=== PATIENT | male | born 1970 | race Caucasian/White ===

== ENCOUNTER 2023-01-30 10:05 | Outpatient (AMB) | payer OTHER, SELFPAY ==
--- NOTE | 2023-01-30 10:06 | A.OFFPC_ITS ---
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 Required: No Allergies codeine Allergy (Intermediate, Verified 01/30/23 10:29) Hives Medication List - Last Reconciled 01/30/23 by ROMAN Shepard albuterol sulfate 90 mcg/actuation inhalation dulaglutide (Trulicity) mg subcut escitalopram oxalate 20 mg PO DAILY gabapentin 300 mg PO BID glipizide ER 5 mg PO DAILY Tobacco use date assessed: 01/30/23 Dental Screening Dental Screen Date: 01/30/23 Did you have a dental visit in the last 12 months?: No Did you have a dental problem in the last 6 months where you did not have access to dental care?: No HPI HPI Comments History of Present Illness Details 52-year-old male new patient presents to [facility] to establish care. Past medical history significant for type 2 diabetes mellitus, peripheral neuropathy, depression and multiple sclerosis. Patient reports he currently resides at the [facility], past hx alcholol abuse. Patient reports a 6 month relapse, last year but is currently sober. Patient states occasionally will smoke marijuana this is infrequent. Patient reports ambulates with a cane ever since [facility] to [facility]acte[facility] and he was treated with IV antibiotics. Patient reports during that admission he was told he had MS. Patient reports not currently established with neurologist, referral entered. Patient needs refills on all his medications, refill sent. Patient denies the need for diabetes supplies such as strips and lancets. Patient screening positive for depression, agreeable to counseling referral. Previous patient of Dr. Harmon, patient past complete record release form. [facility] Medical History (Updated 01/30/23 @ 10:37 by ROMAN Shepard) L4-L5 disc bulge Family History (Updated 01/30/23 @ 10:34 by ROMAN Shepard) Mother CHF (congestive heart failure) Type 2 diabetes mellitus Father Brain cancer Sister Multiple sclerosis Brother Endocarditis Brother Renal failure Social History (Updated 01/30/23 @ 10:35 by DARLENE Shepard Housing: Other Housing Other:: [facility] Alcohol intake: never Patient Tobacco Use Status: Former Tobacco user Quit Date: 2017 Tobacco use type: Cigarette Substance Use Type: Marijuana service: No Current occupational status: disabled Cognitive needs: Yes Hearing needs: No Vision needs: No Questionnaire PHQ-9 Over the last 2 weeks, how often have you been bothered by any of the following problems? 1. Little interest or pleasure in doing things: several days 2. Feeling down, depressed, or hopeless: several days 3. Trouble falling or staying asleep, or sleeping too much: several days 4. Feeling tired or having little energy: several days 5. Poor appetite or overeating: several days 6. Feeling bad about yourself - or that you are a failure or have let yourself or your family down: several days 7. Trouble concentrating on things, such as reading the newspaper or watching television: several days 8. Moving or speaking so slowly that other people could have noticed. Or the opposite - being so fidgety or restless that you have been moving around a lot more than usual: several days 9. Thoughts that you would be better off or of hurting yourself in some way: not at all Total score: 8 Depression Screening Interpretation: Positive Depression Screening Done: Yes 57888 - PHQ-9 Billing: Yes Source: Developed by Drs. Magnus Rosado, Guerline Aquino, Sharath Burch and colleagues, with an educational lynn from [employer]. Thrive Questionnaire Date Thrive assessed: 01/30/23 I am a: Patient What is your living situation today?: I have a steady place to live Within the past 12 months, did the food you bought not last and you didn't have the money to get more?: Never true Within the past 12 months, did you worry whether your food would run out before you got money to buy more?: Never true Do you have trouble paying for medicines?: No Do you have trouble getting transportation to medical appointments?: No Do you have trouble paying your heating and electricity bill?: No Do you have trouble taking care of your child, family member or friend?: No Do you have trouble with day-to-day activities such as bathing, preparing meals, shopping, managing finances, etc.?: No Are you currently unemployed and looking for a job?: No Are you interested in more education?: No AUDIT C Alcohol Use Questionnaire (AUDIT-C) 1. How often do you have a drink containing alcohol?: Never 2. How many drinks containing alcohol do you have on a typical day when you are drinking?: 1 or 2 3. How often do you have six or more drinks on one occasion?: Never Total Score: 0 ORESTES-7 AMB Questionnaire ORESTES-7 Date ORESTES - 7 assessed: 01/30/23 Feeling nervous, anxious, or on edge: 1 = Several days Not being able to stop or control worryin = Several days Worrying too much about different things: 1 = Several days Trouble relaxin = Several days Being so restless that it is hard to sit still: 1 = Several days Becoming easily annoyed or irritable: 1 = Several days Feeling afraid as if something awful might happen: 0 = Not at all Total ORESTES-7 score (0-4 normal; 5-9 mild; 10-14 moderate; 15-21 severe): 6 Source: Developed by Drs. Magnus Rosado, Guerline Aquino, Sharath Burch and colleagues, with an educational lynn from [employer]. Review of Systems Const Denies chills, Denies fatigue, Denies fever(s) and Denies poor appetite Eyes Denies no additional complaints ENT Reports Normal hearing present Card Denies chest pain, Denies syncope, Denies rapid heart rate and Denies dyspnea Resp Denies cough and Denies dyspnea GI Denies change in stool character, Denies constipation, Denies diarrhea, Denies nausea and Denies vomiting Denies dysuria, Denies urinary frequency and Denies urinary urgency Neuro Reports Normal hearing present, Denies confusion and Denies syncope Psych Denies confusion Endo Denies fatigue Physical exam (Primary Care) Vital Signs: Last Vital Signs Pulse 79 01/30/23 10:11 BP 118/88 01/30/23 10:11 Pulse Ox 99 01/30/23 10:11 Oxygen Delivery Method Room Air 01/30/23 10:11 BMI result Body Mass Index 30.5 Tobacco/Smoking Status: Tobacco use Status Tobacco use date assessed 01/30/23 01/30/23 10:22 Patient Tobacco Use Status Former Tobacco user 01/30/23 10:35 Tobacco use type Cigarette 01/30/23 10:35 PHQ-9: PHQ-9 Score PHQ-9: Total score 8 01/30/23 10:35 Depression Screening Interpretation: Positive Thrive Assessment: Date of Thrive Assessment Date Thrive assessed 01/30/23 01/30/23 10:22 Const General: No confusion Orientation/consciousness: No confusion HENMT Head: Yes normocephalic and Yes atraumatic Eyes Conjunctivae: conjunctivae normal Chest Chest palpation & inspection: normal inspection of the chest Resp Effort & Inspection: normal respiratory effort Auscultation: clear to auscultation bilaterally, no crackles, no rhonchi and no wheezes Cardio Rate: regular rate Rhythm: regular rhythm Heart sounds: S1 normal heart sound present and S2 normal heart sound present GI Inspection: Yes normal to inspection Neuro General: No confusion Cranial nerves: Yes Normal hearing present Extrem General: No edema Results AMB Hemoglobin A1c AMB Hemoglobin A1c 8.2 % Last Edit by TIN Victoria on 01/30/23 10:24 Results Reviewed Results Reviewed: Laboratory Last Values Hgb A1c (Clinic) 8.2 % (4.0-6.0) H 01/30/23 10:23 Assessment and Plan Assessment & Plan (1) Depression: Code(s): F32.A - Depression, unspecified Plan: Referral entered to counseling. (2) Multiple sclerosis: Code(s): G35 - Multiple sclerosis Plan: Referral entered to Neurology. (3) Type 2 diabetes mellitus: Code(s): E11.9 - Type 2 diabetes mellitus without complications Plan: Patient requesting refill on Trulicity and glipizide. Refill sent. Hemoglobin A1c and fasting glucose ordered. Patient educated to decrease the amount of carbohydrate intake such as pasta, bread, rice and potatoes are all sugar in addition to the sweet stuff. Remember that fruits are good but they also have sugar. (4) Peripheral neuropathy: Code(s): G62.9 - Polyneuropathy, unspecified Plan: Gabapentin 300 mg b.i.d. sent to patient's pharmacy. Plan Follow-up in 3 months for physical exam. Orders: Orders Complete Blood Count Auto Diff Today Z13.0 - Encounter for screening for diseases of the blood and blood-forming organs and certain disorders involving the immune mechanism Comprehensive [place]. Panel Fast Today E11.9 - Type 2 diabetes mellitus without complications Lipid Panel Today Z13.220 - Encounter for screening for lipoid disorders TSH reflex Free T4 Today Z13.29 - Encounter for screening for other suspected endocrine disorder Hemoglobin A1c Today E11.9 - Type 2 diabetes mellitus without complications AMB Hemoglobin A1c Today Z13.9 - Encounter for screening, unspecified Referrals Neurology Referral G35 - Multiple sclerosis Counseling Referral F32.A - Depression, unspecified Medications: New dulaglutide (Trulicity) 1.5 mg (0.5 mL) subcut QWEEK 2 mL 3RF E11.9 - Type 2 diabetes mellitus without complications escitalopram oxalate 20 mg PO DAILY 30 tabs 3RF glipizide ER 5 mg PO DAILY 30 tabs 3RF gabapentin 300 mg PO BID 60 caps 3RF Coding Level of Care Code New Pt Level 4 (57557) Diagnoses Depression F32.A Multiple sclerosis G35 Type 2 diabetes mellitus E11.9 Peripheral neuropathy G62.9
[2023-01-30 10:11] VITALS: BP 118/88; PULSE 79; O2SAT 99; BMI 30.5
== END 2023-01-30 10:50 | disposition home or self-care (01) ==
PROVIDERS: PCP Nurse Practitioner Family; Visit Provider Nurse Practitioner Family
DX: F32.A Depression, unspecified (principal); G35 Multiple sclerosis; E11.42 Type 2 diabetes mellitus with diabetic polyneuropathy; G62.9 Polyneuropathy, unspecified
CPT/HCPCS: 83036; 99204

== ENCOUNTER 2023-04-25 10:30 | Outpatient (REF) | payer OTHER, SELFPAY ==
[2023-04-25 10:39] LABS: MANUAL DIFF FLAG NO
[2023-04-25 11:07] LABS: Basophils Percent Auto 0.6 % (0-2); Eosinophils Absolute Auto 0.2 X10*3/uL (0.0-0.4); Eosinophils Percent Auto 3.8 % (0-4); Hematocrit 44.6 % (42.0-52.0); Hemoglobin 15.8 g/dl (14.0-18.0); Imm Gran Abs Auto 0.02 X10*3/uL (0.00-0.03); Imm Gran Pct Auto 0.3 % (0.0-0.4); Lymphocytes Absolute Auto 2.3 X10*3/uL (1.2-4.9); Lymphocytes Percent Auto 36.5 % (20-40); Mean Corpuscular HGB Conc 35.4 g/dl (31.0-36.0); Mean Corpuscular Hemoglobin 33.5 pg (27.0-33.0); Mean Corpuscular Volume 94.7 fL (80.0-98.0); Monocytes Absolute Auto 0.5 X10*3/uL (0.1-1.2); Neutrophils Absolute Auto 3.2 x10*3/uL (2.0-8.3); Neutrophils Percent Auto 50.8 % (45-73); Platelet Count 222 X10*3/uL (160-400); Red Blood Count 4.71 X10*6/uL (4.60-5.80); Red Cell Distribution Width 12.3 % (11.0-16.0); White Blood Count 6.4 X10*3/uL (4.8-10.8)
[2023-04-25 12:33] LABS: Alanine Aminotransferase 25 U/L (0-40); Alkaline Phosphatase 94 U/L (39-117); Anion Gap 9 (12-20); Aspartate Amino Transferase 13 U/L (5-37); Bilirubin Total 0.5 mg/dL (0.0-1.0); Blood Urea Nitrogen 16 mg/dL (9-16); Calcium 9.2 mg/dL (8.4-10.2); Carbon Dioxide 24 mmol/L (22-29); Chloride 110 mmol/L (96-108); Cholesterol 161 mg/dL (<200); Estimated Glomerular Filt Rate > 60; Glucose Fasting 240 mg/dL (60-99); HDL Cholesterol 35 mg/dL (>40); LDL Cholesterol Calculated 91 mg/dL (<100); Potassium 4.3 mmol/L (3.3-5.1); Sodium 139 mmol/L (135-145); TSH reflex Free T4 1.78 uIU/mL (0.32-4.0); Total Protein 6.6 g/dL (6.5-8.0); Triglycerides 176 mg/dL (<150)
[2023-04-25 16:20] LABS: Estimated Average Glucose 163 mg/dL; Hemoglobin A1c % 7.3 % (<6.0)
== END 2023-04-25 10:31 | disposition home or self-care (01) ==
LOC: HO.LAB 10:30
PROVIDERS: Visit Provider Nurse Practitioner Family
DX: E11.9 Type 2 diabetes mellitus without complications (principal); Z13.220 Encounter for screening for lipoid disorders; Z13.29 Encounter for screening for other suspected endocrine disorder; Z13.0 Encounter for screening for diseases of the blood and blood-forming organs and certain disorders involving the immune mechanism
CPT/HCPCS: 36415; 80053; 80061; 83036; 84443; 85025

== ENCOUNTER 2023-06-09 16:24 | Outpatient (AMB) | payer OTHER, SELFPAY ==
--- NOTE | 2023-06-09 16:46 | MHC.PC.OV ---
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: No Allergies codeine Allergy (Intermediate, Verified 06/09/23 16:51) Hives Medication List - Last Reconciled 06/09/23 by Remigio Hernandez MD albuterol sulfate 90 mcg/actuation inhalation escitalopram oxalate 20 mg PO DAILY gabapentin 300 mg PO BID glipizide ER 5 mg PO DAILY multivit with min-folic acid 12 mcg (Centrum Adults) tabs PO Tobacco use date assessed: 06/09/23 Dental Screening Dental Screen Date: 06/09/23 Did you have a dental visit in the last 12 months?: No Did you have a dental problem in the last 6 months where you did not have access to dental care?: No HPI Transfer care HPI Details 52-year-old obese male with a history of diabetes mellitus multiple sclerosis depression and peripheral no polyneuropathy last seen in the office in January 2023. Patient is here for follow-up. Review of the notes from [facility] has a history of bipolar disorder as well as polysubstance abuse history of hepatitis-C noted polyps in the gallbladder question david of pancreatic lesion patient is here for follow-up. [facility] Medical History (Updated 06/09/23 @ 17:33 by Remigio Hernandez MD) Endocarditis Depression Type 2 diabetes mellitus L4-L5 disc bulge Surgical History (Updated 06/09/23 @ 17:27 by Reimgio Hernandez MD) Club foot of both lower extremities Family History (Updated 06/09/23 @ 17:28 by Remigio Hernandez MD) Mother CHF (congestive heart failure) Type 2 diabetes mellitus Father Brain cancer Sister Multiple sclerosis Brother Endocarditis Brother Renal failure Maternal Grandmother Breast cancer Maternal Grandfather Lung cancer Social History (Updated 06/09/23 @ 17:29 by Remigio Hernandez MD) Housing: Other Housing Other:: [facility] Alcohol intake: current Comment: 2x a week till pass out Patient Tobacco Use Status: Former Tobacco user Quit Date: 2017 Tobacco use type: Cigarette Years Smoked: marijuana Substance Use Type: Marijuana service: No Current occupational status: disabled Cognitive needs: Yes Hearing needs: No Vision needs: No Questionnaire PHQ-9 Over the last 2 weeks, how often have you been bothered by any of the following problems? 1. Little interest or pleasure in doing things: not at all 2. Feeling down, depressed, or hopeless: not at all 3. Trouble falling or staying asleep, or sleeping too much: not at all 4. Feeling tired or having little energy: not at all 5. Poor appetite or overeating: not at all 6. Feeling bad about yourself - or that you are a failure or have let yourself or your family down: not at all 7. Trouble concentrating on things, such as reading the newspaper or watching television: not at all 8. Moving or speaking so slowly that other people could have noticed. Or the opposite - being so fidgety or restless that you have been moving around a lot more than usual: not at all 9. Thoughts that you would be better off or of hurting yourself in some way: not at all Total score: 0 Depression Screening Interpretation: Negative Depression Screening Done: Yes 59766 - PHQ-9 Billing: Yes Source: Developed by Drs. Magnus Rosado, Guerline Aquino, Sharath Burch and colleagues, with an educational lynn from [employer]. Thrive Questionnaire Date Thrive assessed: 06/09/23 I am a: Patient What is your living situation today?: I have a steady place to live Within the past 12 months, did the food you bought not last and you didn't have the money to get more?: Never true Within the past 12 months, did you worry whether your food would run out before you got money to buy more?: Never true Do you have trouble paying for medicines?: No Do you have trouble getting transportation to medical appointments?: No Do you have trouble paying your heating and electricity bill?: No Do you have trouble taking care of your child, family member or friend?: No Do you have trouble with day-to-day activities such as bathing, preparing meals, shopping, managing finances, etc.?: No Are you currently unemployed and looking for a job?: No Are you interested in more education?: No Please select the resources that you would like help with: None Currently or been in a relationship where the following occur: no concerns reported THRIVE Score: 0 AUDIT C Alcohol Use Questionnaire (AUDIT-C) 1. How often do you have a drink containing alcohol?: Never 2. How many drinks containing alcohol do you have on a typical day when you are drinking?: 1 or 2 3. How often do you have six or more drinks on one occasion?: Never Total Score: 0 ORESTES-7 AMB Questionnaire ORESTES-7 Date ORESTES - 7 assessed: 06/09/23 Feeling nervous, anxious, or on edge: 1 = Several days Not being able to stop or control worryin = Several days Worrying too much about different things: 1 = Several days Trouble relaxin = Several days Being so restless that it is hard to sit still: 1 = Several days Becoming easily annoyed or irritable: 1 = Several days Feeling afraid as if something awful might happen: 0 = Not at all Total ORESTES-7 score (0-4 normal; 5-9 mild; 10-14 moderate; 15-21 severe): 6 Source: Developed by Drs. Magnus Rosado, Guerline Aquino, Sharath Burch and colleagues, with an educational lynn from [employer]. ORESTES-7 Assessment Billing ORESTES-7 Assessment Tool: ORESTES-7 Assessment 46966 Physical exam (Primary Care) Vital Signs: Last Vital Signs Pulse 66 06/09/23 16:51 BP 106/74 06/09/23 16:51 Pulse Ox 97 06/09/23 16:51 Oxygen Delivery Method Room Air 06/09/23 16:51 BMI result Body Mass Index 30.8 Tobacco/Smoking Status: Tobacco use Status Tobacco use date assessed 06/09/23 06/09/23 16:52 Patient Tobacco Use Status Former Tobacco user 06/09/23 17:29 Tobacco use type Cigarette 06/09/23 17:29 PHQ-9: PHQ-9 Score PHQ-9: Total score 0 06/09/23 17:03 Depression Screening Interpretation: Negative Thrive Assessment: Date of Thrive Assessment Date Thrive assessed 06/09/23 06/09/23 16:52 Currently or been in a relationship where the following occur: no concerns reported Const General: alert; No acute distress Eyes Conjunctivae: conjunctivae normal Resp Auscultation: clear to auscultation bilaterally Cardio Rate: regular rate Rhythm: regular rhythm GI Inspection: Yes normal to inspection Extrem General: Yes normal to inspection and No edema Assessment and Plan Assessment & Plan (1) Type 2 diabetes mellitus with hyperglycemia: Code(s): E11.65 - Type 2 diabetes mellitus with hyperglycemia Plan: Decrease the amount of carbohydrate intake, pasta, bread, rice and potatoes are all sugar and that is aside from all the sweet stuff, remember that fruits are good but they are Sweet also. Hemoglobin A1c goal of less than 6.5. Presently on glipizide and aware of side effects of hypoglycemia and so far patient is aware. Patient has been prescribed Trulicity but could not get the prescription due to lack of availability. Will try Victoza injection once a day. (2) Major depression: Code(s): F32.9 - Major depressive disorder, single episode, unspecified Plan: Referral to counseling. Continue with Lexapro. (3) Multiple sclerosis: Code(s): G35 - Multiple sclerosis Plan: Patient will be referred to Neurology (4) Peripheral neuropathy: Code(s): G62.9 - Polyneuropathy, unspecified Plan: Continue with present medication (5) Colon cancer screening: Code(s): Z12.11 - Encounter for screening for malignant neoplasm of colon Plan: Referral to Gastroenterology done (6) Pancreatic mass: Code(s): K86.89 - Other specified diseases of pancreas Plan: Referral to Gastroenterology to follow this up (7) L4-L5 disc bulge: Code(s): M51.36 - Other intervertebral disc degeneration, lumbar region Plan: X-ray requested and advised physical therapy. Orders: Orders XR lumbar spine 2-3V Today M51.36 - Other intervertebral disc degeneration, lumbar region PT Evaluation and Treatment Today M51.36 - Other intervertebral disc degeneration, lumbar region Referrals Gastroenterology Referral K86.89 - Other specified diseases of pancreas, Z12.11 - Encounter for screening for malignant neoplasm of colon Psychiatry Referral F32.9 - Major depressive disorder, single episode, unspecified Ophthalmology Referral E11.65 - Type 2 diabetes mellitus with hyperglycemia Neurology Referral G35 - Multiple sclerosis Medications: New liraglutide (Victoza 3-Christian) inject 0.6mg subcutaneously once daily x 7 days; then 1.2mg daily, not to exceed 1.8mg/day subcut 9 mL 0RF E11.65 - Type 2 diabetes mellitus with hyperglycemia Coding Level of Care Code Est Pt Level 4 (13011) Diagnoses Type 2 diabetes mellitus with hyperglycemia E11.65 Major depression F32.9 Multiple sclerosis G35 Peripheral neuropathy G62.9 Colon cancer screening Z12.11 Pancreatic mass K86.89 L4-L5 disc bulge M51.36 Additional Codes ORESTES-7 Assessment Billing - ORESTES-7 Assessment Tool: ORESTES-7 Assessment [id number] ([id number])
[2023-06-09 16:51] VITALS: BP 106/74; PULSE 66; O2SAT 97; BMI 30.8
== END 2023-06-09 17:41 | disposition home or self-care (01) ==
PROVIDERS: PCP Nurse Practitioner Family; Visit Provider Internal Medicine
DX: E11.65 Type 2 diabetes mellitus with hyperglycemia (principal); G35 Multiple sclerosis; F32.9 Major depressive disorder, single episode, unspecified; G62.9 Polyneuropathy, unspecified; Z12.11 Encounter for screening for malignant neoplasm of colon; K86.89 Other specified diseases of pancreas; M51.36 Other intervertebral disc degeneration, lumbar region
CPT/HCPCS: 99214

== ENCOUNTER 2023-09-22 08:18 | Outpatient (AMB) | payer MEDICARE, SELFPAY ==
[2023-09-22 08:35] VITALS: BP 90/68; PULSE 78; O2SAT 97; BMI 30.8
--- NOTE | 2023-09-22 08:35 | MHC.PC.OV ---
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 Required: No Allergies codeine Allergy (Intermediate, Verified 06/09/23 16:51) Hives Medication List - Last Reconciled 09/22/23 by Keiry Ramirez PA-C albuterol sulfate 90 mcg/actuation inhalation blood sugar diagnostic (FreeStyle Lite Strips) As directed dulaglutide (Trulicity) mg subcut escitalopram oxalate 20 mg PO DAILY gabapentin 400 mg PO BID glipizide ER 5 mg PO DAILY insulin glargine (Lantus Solostar U-100 Insulin) 10 units subcut QPM liraglutide (Victoza 3-Christian) inject 0.6mg subcutaneously once daily x 7 days; then 1.2mg daily, not to exceed 1.8mg/day subcut multivit with min-folic acid 12 mcg (Centrum Adults) tabs PO Tobacco use date assessed: 06/09/23 Dental Screening Dental Screen Date: 06/09/23 HPI Uncontrolled Blood Sugars HPI Details 52-year-old male with past medical history of peripheral neuropathy, multiple sclerosis, depression, and diabetes mellitus last seen by Dr. Hernandez 05/2023 coming in for acute problem.? In review of the notes, patient was seen for diabetic eye exam 06/19/2023 and not found to have retinopathy.? He has been seeing physical therapy for back pain. Patient states he has been without Trulicity for about 3 months and has been unable to get it from the pharmacy. His blood sugars during this time were typically 300-400 range. He was able to get Trulicity and took his 1st dose this week and this morning his blood sugar was 140. He states he has dizziness and lightheadedness in the 140 range typically has to have a snack. He uses his Lantus if he continues to have elevated blood sugars and holds the Lantus if the sugars are 170 or below. He has been having pain and tingling in his hands and feet and blurred vision. Was seen by optometry and given glasses but can not afford the prescription. [facility] Medical History (Updated 06/09/23 @ 17:33 by Remigio Hernandez MD) Endocarditis Depression Type 2 diabetes mellitus L4-L5 disc bulge Surgical History (Updated 06/09/23 @ 17:27 by Remigio Hernandez MD) Club foot of both lower extremities Family History (Updated 06/09/23 @ 17:28 by Remigio Hernandez MD) Mother CHF (congestive heart failure) Type 2 diabetes mellitus Father Brain cancer Sister Multiple sclerosis Brother Endocarditis Brother Renal failure Maternal Grandmother Breast cancer Maternal Grandfather Lung cancer Social History (Updated 06/09/23 @ 17:29 by Remigio Hernandez MD) Housing: Other Housing Other:: [employer] Alcohol intake: current Comment: 2x a week till pass out Patient Tobacco Use Status: Former Tobacco user Tobacco use type: Cigarette Years Smoked: marijuana Substance Use Type: Marijuana service: No Current occupational status: disabled Cognitive needs: Yes Hearing needs: No Vision needs: No Questionnaire Thrive Questionnaire Date Thrive assessed: 06/09/23 AUDIT C Alcohol Use Questionnaire (AUDIT-C) 1. How often do you have a drink containing alcohol?: Never 2. How many drinks containing alcohol do you have on a typical day when you are drinking?: 1 or 2 3. How often do you have six or more drinks on one occasion?: Never Total Score: 0 ORESTES-7 AMB Questionnaire ORESTES-7 Date ORESTES - 7 assessed: 06/09/23 Source: Developed by Drs. Magnus Rosado, Guerline Aquino, Sharath Burch and colleagues, with an educational lynn from [employer]. Review of Systems Const Denies body aches, Denies chills, Denies fever(s), Denies headache(s) and Denies poor appetite Eyes Reports no additional complaints ENT Denies dysphagia, Denies dizziness, Denies headache(s) and Denies odynophagia Card Denies chest pain, Denies syncope, Denies edema, Denies irregular heart rhythm, Reports lightheadedness (With low blood sugars) and Denies dyspnea Resp Denies cough and Denies dyspnea GI Denies abdominal pain, Denies constipation, Denies dysphagia, Denies diarrhea, Denies nausea, Denies odynophagia and Denies vomiting Reports no additional complaints Musc Reports no additional complaints, Denies abnormal gait and Reports numbness Skin/Breast Reports system reviewed and no additional complaints, except as documented Neuro Denies abnormal gait, Reports burning sensations (Feet bilaterally), Denies dizziness, Denies syncope, Denies headache(s) and Reports numbness Psych Reports no additional complaints Physical exam (Primary Care) Vital Signs: Last Vital Signs Pulse 78 09/22/23 08:35 BP 90/68 09/22/23 08:35 Pulse Ox 97 09/22/23 08:35 Oxygen Delivery Method Room Air 09/22/23 08:35 BMI result Body Mass Index 30.8 Tobacco/Smoking Status: Tobacco use Status Tobacco use date assessed 06/09/23 09/22/23 08:36 Patient Tobacco Use Status Former Tobacco user 09/22/23 08:36 Tobacco use type Cigarette 09/22/23 08:36 Thrive Assessment: Date of Thrive Assessment Date Thrive assessed 06/09/23 09/22/23 08:36 Const General: cooperative, healthy appearing, comfortable and no acute distress Orientation/consciousness: patient oriented x3 HENMT Head: Yes normocephalic Ears: hearing grossly normal bilaterally General nose exam: Normal external nose present Eyes General: appearance normal, both eyes and all related structures Conjunctivae: conjunctivae normal Neck Neck: Yes full ROM and Yes no lymphadenopathy Resp Effort & Inspection: normal respiratory effort Auscultation: clear to auscultation bilaterally, no crackles, no rales, no rhonchi and no wheezes Cardio Rate: regular rate Rhythm: regular rhythm Skin General skin exam: no rashes or lesions noted Neuro General: patient oriented x3 Gait exam (Neuro): Normal gait present Extrem General: Yes normal to inspection, Yes full ROM and No edema Psych Affect: normal affect Attitude: cooperative Insight: Good insight present (Psych) Judgement: Good judgement present (Psych) Results AMB Hemoglobin A1c AMB Hemoglobin A1c 8.5 % Last Edit by TIN Victoria on 09/22/23 08:58 Results Reviewed Results Reviewed: Laboratory Last Values Hgb A1c (Clinic) 8.5 % (4.0-6.0) H 09/22/23 08:36 Assessment and Plan Assessment & Plan (1) Type 2 diabetes mellitus with hyperglycemia: Code(s): E11.65 - Type 2 diabetes mellitus with hyperglycemia Plan: Patient's A1c today in the office was 8.5% which was increased from 03/2023 at 7.3%. Patient was able to obtain Trulicity through his pharmacy. He did not bring in his meter today or his recent blood sugar readings. Patient will manually keep track of blood pressure readings and bring in his meter at next visit for counseling. Advised patient if he continues to be lightheaded with low blood sugars or has values below 100 to reach out to the office and/or if he is unable to obtain Trulicity. We will follow up in 3 months for repeat A1c. Continue to follow up with electroneurodiagnostic technologist. Decrease the amount of carbohydrates such as pasta, bread, rice, and potatoes and limit the amount of sweets. Although fruits are generally healthy they should be eaten in moderation as they are still high in sugar. Hemoglobin A1c goal of less than 7%. (2) Peripheral neuropathy: Code(s): G62.9 - Polyneuropathy, unspecified Plan: Patient currently on gabapentin 400 mg b.i.d.. States the neuropathy has worsened since being out of Trulicity. We will continue to monitor. Plan This note was constructed using voice recognition software. While every effort has been made to ensure accuracy and web operations lead, still areas may have been included sometimes these areas may affect the content or meeting of the given symptoms. Total time spent caring for the patient today was 30 minutes. This includes time spent before the visit reviewing the chart, time spent during the visit, and time spent after the visit and documentation. Orders: Orders AMB Hemoglobin A1c Today E11.65 - Type 2 diabetes mellitus with hyperglycemia Medications: New blood sugar diagnostic (FreeStyle Lite Strips) As directed 50 ea 3RF Coding Level of Care Code Est Pt Level 4 (58292) Diagnoses Type 2 diabetes mellitus with hyperglycemia E11.65 Peripheral neuropathy G62.9
== END 2023-09-22 09:32 | disposition home or self-care (01) ==
PROVIDERS: PCP Internal Medicine
DX: E11.65 Type 2 diabetes mellitus with hyperglycemia (principal); G62.9 Polyneuropathy, unspecified
CPT/HCPCS: 83036; 99214

== ENCOUNTER 2023-12-18 13:52 | Outpatient (AMB) | payer MEDICARE, SELFPAY ==
--- NOTE | 2023-12-18 14:15 | A.OFFVIS_ITS ---
Vital Signs 12/18/23 14:20 Height 5 ft 6 in Weight 185 lb 4 oz BMI 29.9 BP 102/60 Blood Pressure Location Rt brachial Position Sitting Pulse 70 Pulse Source Pulse Oximeter Pulse Oximetry (%) 96 Oxygen Delivery Method Room Air Intake Visit Reasons: (LVM-LETTER 06/14)INP-Multiple sclerosis Intake Note: Patient presents in office for a new patient evaluation for multiple sclerosis. Patient states that his feet hurt due to the neuropathy making it difficult to walk. C/o of muscle pain and feeling fatigue. Wet Finisher Wool Required: No Accompanied by: Self / Same As Patient Allergies codeine Allergy (Intermediate, Verified 12/18/23 14:20) Hives Medication List - Last Reconciled 12/19/23 by Anastasia Tello MD albuterol sulfate 90 mcg/actuation inhalation blood sugar diagnostic (FreeStyle Lite Strips) As directed three times per day dulaglutide (Trulicity) 1.5 mg (0.5 mL) subcut QWEEK escitalopram oxalate 20 mg PO DAILY gabapentin 400 mg PO BID glipizide ER 5 mg PO DAILY insulin glargine (Lantus Solostar U-100 Insulin) 10 units subcut QPM PRN multivit with min-folic acid 12 mcg (Centrum Adults) tabs PO HPI Comments Details: 53y/o male comes for neurological evaluation. In 2019 he had MRSA and he had sudden rodney leg weakness. He was hospitalized in [facility] and was told he has MS ?.when he was discharged he needed a walker and has improved since then . He uses a cane as needed now. He reports on and off leg cramps , burning in calves , stiffness, hip pain causing gait issues. He also has back pain shooting down his legs . He describes it as burning pain. He has h/o diabetes and was found to have neuropathy .He is concerned about MS as his sister and Aunt has MS. He has urinary urgency and incontinence. He reports dizziness . No double vision or loss of vision He used to be an avid hiker before all this. [facility] Medical History (Updated 12/19/23 @ 08:14 by Anastasia Tello MD) Muscle spasms of both lower extremities Weakness Opiate abuse, episodic Cocaine abuse Heroin abuse Endocarditis Depression Type 2 diabetes mellitus L4-L5 disc bulge Surgical History Club foot of both lower extremities Family History Mother CHF (congestive heart failure) Type 2 diabetes mellitus Father Brain cancer Sister Multiple sclerosis Brother Endocarditis Brother Renal failure Maternal Grandmother Breast cancer Maternal Grandfather Lung cancer Social History Housing: Other Housing Other:: [employer] Alcohol intake: current Comment: 2x a week till pass out Patient Tobacco Use Status: Former Tobacco user Tobacco use type: Cigarette Years Smoked: marijuana Substance Use Type: Marijuana service: No Current occupational status: disabled Cognitive needs: Yes Hearing needs: No Vision needs: No Physical Exam Vital Signs: Last Vital Signs Pulse 70 12/18/23 14:20 BP 102/60 12/18/23 14:20 Pulse Ox 96 12/18/23 14:20 Oxygen Delivery Method Room Air 12/18/23 14:20 BMI result Body Mass Index 29.9 Const General: cooperative, healthy appearing, comfortable and no acute distress Nutritional Appearance: average body habitus Orientation/consciousness: patient oriented x3 Eyes Pupils: Equal, round and reactive pupils present Neuro General: patient oriented x3, gait normal, tone normal, moves all extremities and no focal motor deficits Cranial nerves: Yes Facial sensation intact/muscles of mastication intact, Yes Equal, round and reactive pupils present, Yes Bilaterally intact EOM present, Yes Nystagmus not present, Yes Normal facial strength present, Yes Midline tongue present and Yes Symmetric palate elevation present Cognition (Neuro): normal cognition Gait exam (Neuro): Normal gait present Motor exam (neuro): 5/5 motor strength present throughout and Normal motor muscle tone present throughout Deep tendon reflexes (DTR's): Right triceps reflex intensity grade: 1+, Left triceps reflex intensity grade: 1+, Rt Biceps (C5, C6): 1+, Left biceps reflex intensity grade: 1+, Right brachioradialis reflex intensity grade: 1+, Left brachioradialis reflex intensity grade: 1+, Right patellar reflex intensity gr linda: 1+ and Left patellar reflex intensity grade: 1+ Assessment & Plan Assessment & Plan (1) Weakness: Comment: ? h/o MS Code(s): R53.1 - Weakness Category: Medical (2) Muscle spasms of both lower extremities: Code(s): M62.838 - Other muscle spasm Category: Medical (3) Peripheral neuropathy: Code(s): G62.9 - Polyneuropathy, unspecified Category: Medical Qualifiers: Peripheral neuropathy type: polyneuropathy, other Qualified Code(s): G62.89 - Other specified polyneuropathies Plan I will evaluate him with MRI brain for possible MS MRI LS spine for causes of leg spasm, back pain and weakness EMG NCS for neuropathy Orders: Orders MR head/brain wo con 12/18/23 G35 - Multiple sclerosis, M51.36 - Other intervertebral disc degeneration, lumbar region MR lumbar spine wo con 12/18/23 G35 - Multiple sclerosis, M51.36 - Other intervertebral disc degeneration, lumbar region NE electromyogram (EMG) Today G62.9 - Polyneuropathy, unspecified NE nerve conduction velocity Today G62.9 - Polyneuropathy, unspecified Coding Level of Care Code New Pt Level 4 (41684) Complex EM visit Add On G2211 Diagnoses Weakness R53.1 Muscle spasms of both lower extremities M62.838 Other polyneuropathy G62.89 Peripheral neuropathy type: polyneuropathy, other
[2023-12-18 14:20] VITALS: BP 102/60; PULSE 70; O2SAT 96; BMI 29.9
== END 2023-12-18 14:52 | disposition home or self-care (01) ==
PROVIDERS: PCP Internal Medicine; Visit Provider Psychiatry & Neurology Neurology
DX: R53.1 Weakness (principal); M62.838 Other muscle spasm; G62.89 Other specified polyneuropathies
CPT/HCPCS: 99204; G2211

== ENCOUNTER → 2023-12-18 13:52 | Outpatient (BNVA) | payer MEDICARE, SELFPAY | PROVIDERS: PCP Internal Medicine; Visit Provider Psychiatry & Neurology Neurology | DX: G35 Multiple sclerosis (principal); R53.1 Weakness; M62.838 Other muscle spasm; G62.89 Other specified polyneuropathies; M51.369 Other intervertebral disc degeneration, lumbar region without mention of lumbar back pain or lower extremity pain | CPT/HCPCS: 99202 ==

== ENCOUNTER 2023-12-27 10:26 | Outpatient (AMB) | payer MEDICARE, SELFPAY ==
[2023-12-27 10:30] VITALS: BP 114/72; PULSE 70; O2SAT 98; BMI 30.2
--- NOTE | 2023-12-27 10:30 | A.OFFPC_ITS ---
Vital Signs 12/27/23 10:30 Height 5 ft 6 in Weight 187 lb BMI 30.2 BP 114/72 Blood Pressure Location Lt brachial Position Sitting Pulse 70 Pulse Source Pulse Oximeter Pulse Oximetry (%) 98 Oxygen Delivery Method Room Air Intake Visit Reasons: f/u DM Allergies codeine Allergy (Intermediate, Verified 12/27/23 10:30) Hives Medication List - Last Reconciled 12/27/23 by Keiry Ramirez PA-C albuterol sulfate 90 mcg/actuation inhalation blood sugar diagnostic (FreeStyle Lite Strips) As directed three times per day dulaglutide (Trulicity) 1.5 mg (0.5 mL) subcut QWEEK escitalopram oxalate 20 mg PO DAILY gabapentin 400 mg PO BID glipizide ER 5 mg PO DAILY insulin glargine (Lantus Solostar U-100 Insulin) 10 units subcut QPM PRN multivit with min-folic acid 12 mcg (Centrum Adults) tabs PO Tobacco use date assessed: 06/09/23 Dental Screening Dental Screen Date: 06/09/23 HPI f/u DM HPI Details 53-year-old male with past medical histo ry of peripheral neuropathy, multiple sclerosis, depression, and diabetes mellitus last seen August 2023 coming in for follow up. In review of the notes, patient has saw [facility] [place] 12/19/2023 advised evaluation with MRI and lower extremity EMG. Patient states he had a very hard time trying to get all of Trulicity and as a result restarted this medication last Monday for the 1st time. He continues to have lower extremity numbness and tingling and has nerve conduction study scheduled for next month. Does also complain of upper extremity numbness and tingling worse in the right than the left. He also endorses a poor diet with high carb intake. [facility] Medical History Diabetic neuropathy Muscle spasms of both lower extremities Weakness Opiate abuse, episodic Cocaine abuse Heroin abuse Endocarditis Depression Type 2 diabetes mellitus L4-L5 disc bulge Surgical History Club foot of both lower extremities Family History Mother CHF (congestive heart failure) Type 2 diabetes mellitus Father Brain cancer Sister Multiple sclerosis Brother Endocarditis Brother Renal failure Maternal Grandmother Breast cancer Maternal Grandfather Lung cancer Social History Housing: Other Housing Other:: [facility] Alcohol intake: current Comment: 2x a week till pass out Patient Tobacco Use Status: Former Tobacco user Tobacco use type: Cigarette Years Smoked: marijuana Substance Use Type: Marijuana service: No Current occupational status: disabled Cognitive needs: Yes Hearing needs: No Vision needs: No Questionnaire Thrive Questionnaire Date Thrive assessed: 06/09/23 AUDIT C Alcohol Use Questionnaire (AUDIT-C) 1. How often do you have a drink containing alcohol?: Never 2. How many drinks containing alcohol do you have on a typical day when you are drinking?: 1 or 2 3. How often do you have six or more drinks on one occasion?: Never Total Score: 0 ORESTES-7 AMB Questionnaire ORESTES-7 Date ORESTES - 7 assessed: 06/09/23 Source: Developed by Drs. Magnus Rosado, Guerline Aquino, Sharath Burch and colleagues, with an educational lynn from [employer]. Review of Systems Const Denies body aches, Denies chills, Denies fever(s) and Denies headache(s) Eyes Reports no additional complaints ENT Denies dizziness and Denies headache(s) Card Denies chest pain, Denies syncope, Denies edema and Denies dyspnea Resp Denies cough and Denies dyspnea GI Denies abdominal pain, Denies constipation, Denies diarrhea, Denies nausea and Denies vomiting Reports no additional complaints Musc Reports no additional complaints and Denies abnormal gait Skin/Breast Reports system reviewed and no additional complaints, except as documented Neuro Details: Upper and lower extremity numbness and tingling Denies abnormal gait, Denies dizziness, Denies syncope and Denies headache(s) Psych Reports no additional complaints Physical exam (Primary Care) Vital Signs: Oxygen Delivery Method Room Air 12/27/23 10:30 Tobacco/Smoking Status: Tobacco use Status Tobacco use date assessed 06/09/23 12/27/23 10:31 Patient Tobacco Use Status Former Tobacco user 12/27/23 10:31 Tobacco use type Cigarette 12/27/23 10:31 Thrive Assessment: Date of Thrive Assessment Date Thrive assessed 06/09/23 12/27/23 10:31 Const General: cooperative, healthy appearing, comfortable and no acute distress Orientation/consciousness: patient oriented x3 HENMT Head: Yes normocephalic Ears: hearing grossly normal bilaterally General nose exam: Normal external nose present Eyes General: appearance normal, both eyes and all related structures Conjunctivae: conjunctivae normal Neck Neck: Yes full ROM and Yes no lymphadenopathy Resp Effort & Inspection: normal respiratory effort Auscultation: clear to auscultation bilaterally, no crackles, no rales, no rhonchi and no wheezes Cardio Rate: regular rate Rhythm: regular rhythm Skin General skin exam: no rashes or lesions noted Neuro General: patient oriented x3 Gait exam (Neuro): Normal gait present Extrem Other: Intact strength, sensation, pulses in bilateral upper and lower extremities General: Yes normal to inspection, Yes full ROM and No edema Psych Affect: normal affect Attitude: cooperative Insight: Good insight present (Psych) Judgement: Good judgement present (Psych) Results AMB Hemoglobin A1c AMB Hemoglobin A1c 8.5 % Last Edit by TIN Victoria on 12/27/23 10:56 Coding Level of Care Code Est Pt Level 4 (84416) Diagnoses Diabetic neuropathy E11.40 Type 2 diabetes mellitus with hyperglycemia E11.65 Multiple sclerosis G35 Numbness and tingling in both hands R20.0; R20.2 Assessment & Plan Assessment & Plan (1) Diabetic neuropathy: Code(s): E11.40 - Type 2 diabetes mellitus with diabetic neuropathy, unspecified Category: Medical Plan: Presently on gabapentin 400 mg b.i.d. lower extremity EMG ordered by Neurology to be completed next month. (2) Type 2 diabetes mellitus with hyperglycemia: Code(s): E11.65 - Type 2 diabetes mellitus with hyperglycemia Category: Medical Plan: Decrease the amount of carbohydrates such as pasta, bread, rice, and potatoes and limit the amount of sweets. Although fruits are generally healthy they should be eaten in moderation as they are still high in sugar. Hemoglobin A1c goal of less than 7%. A1c is unchanged from last visit although patient has not had Trulicity. Advised patient to discontinue high carb intake and follow up in 3 months for repeat A1c. (3) Multiple sclerosis: Code(s): G35 - Multiple sclerosis Category: Medical Plan: Currently being evaluated by Neurology. MRI has not been scheduled yet but has been ordered and ordered for lower extremity EMG. (4) Numbness and tingling in both hands: Code(s): R20.0 - Anesthesia of skin; R20.2 - Paresthesia of skin Category: Medical Plan: Patient complaining of numbness and tingling in bilateral hands and upper extremities right greater than left. Has had cortisone injections in the right hand in the past with good improvement. Ordered for upper extremity EMG and can consider orthopedic referral. Plan This note was constructed using voice recognition software. While every effort has been made to ensure accuracy and federal mediation commissioner, still areas may have been included sometimes these areas may affect the content or meeting of the given symptoms. Total time spent caring for the patient today was 20 minutes. This includes time spent before the visit reviewing the chart, time spent during the visit, and time spent after the visit and documentation. Orders: Orders AMB Hemoglobin A1c Today E11.65 - Type 2 diabetes mellitus with hyperglycemia NE electromyogram (EMG) Today R20.0 - Anesthesia of skin, R20.2 - Paresthesia of skin Medications: Refilled blood sugar diagnostic (FreeStyle Lite Strips) As directed three times per day 50 ea 3RF
== END 2023-12-27 11:05 | disposition home or self-care (01) ==
LOC: HO.HMCH 10:27
PROVIDERS: PCP Internal Medicine
DX: E11.40 Type 2 diabetes mellitus with diabetic neuropathy, unspecified (principal); E11.65 Type 2 diabetes mellitus with hyperglycemia; G35 Multiple sclerosis; R20.0 Anesthesia of skin; R20.2 Paresthesia of skin

== ENCOUNTER → 2023-12-27 10:26 | Outpatient (BNVA) | payer MEDICARE, SELFPAY | PROVIDERS: PCP Internal Medicine | DX: E11.40 Type 2 diabetes mellitus with diabetic neuropathy, unspecified (principal); E11.65 Type 2 diabetes mellitus with hyperglycemia; G35 Multiple sclerosis; R20.0 Anesthesia of skin; R20.2 Paresthesia of skin | CPT/HCPCS: 83036; 99212 ==

== ENCOUNTER 2024-06-18 08:53 | Outpatient (REF) | payer OTHER, SELFPAY ==
--- NOTE | 2024-06-18 13:25 | EMG_ITS ---
Bilateral median and ulnar motor and sensory studies were performed. Bilateral radial sensory studies were performed and paraspinal muscles were tested with a needle. IMPRESSION: 1. Moderately severe left and [id number] right median neuropathy across carpal tunnel. 2. Mild left ulnar neuropathy across cubital tunnel. MD LINDA Parker/ILA / [phone]
== END 2024-06-18 08:54 | disposition home or self-care (01) ==
LOC: HO.NEURO 08:53
PROVIDERS: PCP Internal Medicine; Visit Provider Psychiatry & Neurology Neurology
DX: G62.89 Other specified polyneuropathies (principal); E11.40 Type 2 diabetes mellitus with diabetic neuropathy, unspecified
CPT/HCPCS: 95886; 95911

== ENCOUNTER 2024-07-26 15:27 | Emergency (ER) | payer OTHER, SELFPAY ==
[2024-07-26] VITALS (7 sets, daily range): BP systolic 93–120; BP diastolic 61–80; PULSE 74–81; RESP 12–18; TEMP 36.4–36.8; O2SAT 86–97; BMI 26.6
--- NOTE | ~2024-07-26 | XR_ITS ---
EXAMINATION: XR CHEST 1 VIEW HISTORY: hypoxia after overdose COMPARISON: There are no prior studies available for comparison. FINDINGS: A single PA of the chest is submitted. The lungs are expanded and clear. There is no pleural effusion, pneumothorax, or pulmonary vascular congestion. The heart is normal in size. There are multiple old healed right rib fractures. XR/XR chest 1V IMPRESSION: Clear lungs. Electronically signed by: Magnus Burt MD 07/26/2024 03:54 PM EDT
--- NOTE | 2024-07-26 15:34 | ED_ITS ---
HPI - Overdose General Chief Complaint: Overdose Stated Complaint: Heroine OD, 8 mg narcan given Source: patient, EMS and old records reviewed Mode of arrival: EMS Limitations: no limitations History of Present Illness ED Provider: RIKKI HPI Narrative: 53 yo male with PMH of MS, DM2, neuropathy, prior opiate use disorder not on MAT who admits to starting to sniff heroin again he used the same he has in the past and was [place] sitting [place] overdosed. He denies SI/HI. He does not want to go to detox or start MAT therapy. His BS was 166. He states he feels chills and shaky. Bystanders admin the narcan 4mg x 2. He was awake on EMS arrival. Patient's BS was 166. MD complaint: accidental overdose Onset (ago): minute(s) ([employer]) Context: Accidental Overdose: wanted to get high Associated symptoms: nausea/vomiting Treatments Prior to Arrival: narcan (8mg IN narcan) Related Data Home Medications ?Medication ?Instructions ?Recorded ?Confirmed albuterol sulfate 90 mcg/actuation inhalation 01/30/23 12/27/23 aerosol inhaler multivitamin with minerals-folic tab PO 06/09/23 12/27/23 acid 12 mcg chewable tablet (Centrum Adults) insulin glargine 100 unit/mL (3 10 unit subcut QPM PRN 12/18/23 12/27/23 mL) subcutaneous pen (Lantus Solostar U-100 Insulin) Previous Rx's ?Medication ?Instructions ?Recorded gabapentin 400 mg capsule 400 mg PO BID #60 caps 08/02/23 escitalopram oxalate 20 mg tablet 20 mg PO DAILY #30 tabs 08/03/23 glipizide 5 mg tablet, extended 5 mg PO DAILY #30 tabs 10/19/23 release 24 hr blood sugar diagnostic (FreeStyle #50 ea 12/27/23 Lite Strips) wrist splints #1 ea 07/10/24 dulaglutide 1.5 mg/0.5 mL 1.5 mg (0.5 mL) subcut QWEEK #2 mL 07/12/24 subcutaneous pen injector (Trulicity) Allergies Allergy/AdvReac Type Severity Reaction Status Date / Time codeine Allergy Intermediate Hives Verified 07/26/24 15:39 Review of Systems 2 Review of Systems: Constitutional : No Fever, pos Chills, No Fatigue ENT/Mouth : No sore throat, No Rhinorrhea Eyes: No Eye Pain, No Swelling, No Redness Cardiovascular : No Chest Pain, No SOB, No Dyspnea on Exertion Respiratory : pos Cough, No Sputum Gastrointestinal : No Nausea, No Vomiting, No Diarrhea, No abdominal Pain Genitourinary : No Dysuria, No Urinary Frequency, No Hematuria, Musculoskeletal : No joint pain, No Myalgias, No Joint Swelling Skin : No Skin Lesions, No rash Neuro : No Weakness, No Numbness, No Dizziness, no Headache Psych : No Anxiety/Panic, No Depression All other systems reviewed and are negative [facility] Past Medical History Attestation statement: The following information was validated with the patient. Source: old records reviewed Medical History Diabetic neuropathy Muscle spasms of both lower extremities Weakness Opiate abuse, episodic Cocaine abuse Heroin abuse Endocarditis Depression Type 2 diabetes mellitus L4-L5 disc bulge Surgical History Club foot of both lower extremities Family History Family History Mother CHF (congestive heart failure) Type 2 diabetes mellitus Father Brain cancer Sister Multiple sclerosis Brother Endocarditis Brother Renal failure Maternal Grandmother Breast cancer Maternal Grandfather Lung cancer Social History Social History Housing: Other Housing Other:: [facility] [place] Alcohol intake: current Comment: 2x a week till pass out Patient Tobacco Use Status: Former Tobacco user Tobacco use type: Cigarette Years Smoked: marijuana Substance Use Type: Marijuana Advance Directives: No Advance Directives Information Provided: Yes service: No Current occupational status: disabled Cognitive needs: Yes Hearing needs: No Vision needs: No Physical Exam 2 Vital Signs: Vital Signs: Last Vital Signs Temp 98.3 F 07/26/24 16:00 Pulse 76 07/26/24 17:15 Resp 16 07/26/24 17:15 BP 93/61 07/26/24 16:00 Pulse Ox 96 07/26/24 17:15 O2 Del Method Room Air 07/26/24 17:15 O2 Flow Rate 2 07/26/24 15:42 BMI result Body Mass Index 26.6 Appearance: Alert. Oriented X3. No acute distress. Eyes: Pupils equal, round and reactive to light. ENT: Pharynx normal. Neck: Normal inspection. Neck supple. CVS: Normal heart rate and rhythm. Pulses normal. Respiratory: No respiratory distress. Breath sounds bases diminished he has a coarse cough but no sputum Abdomen: Soft and nontender. Skin: Skin warm and dry. Normal skin color. Normal skin turgor. Extremities: No lower extremity edema. No calf ttp Neuro: Oriented X 3. No motor deficit. No sensory deficit. CN2-12 intact Course Course Course Narrative: patient has drastically improved no hypoxia work up reassuring Reevaluation(s) Reevaluation #1: doing well no hypoxia for 1 hour feels fine going home with son who knows how to use narcan Medications Administered Discontinued Medications Generic Name Dose Route Start Last Admin Trade Name Freq PRN Reason Stop Dose Admin Albuterol Sulfate 4 puff 07/26/24 15:51 07/26/24 15:57 Albuterol Sulfate 90 Mcg 8 Gm Inhaler INHALE 07/26/24 15:52 4 puff ONCE ONE Administration Medical Decision Making Medical Decision Making [facility] Narrative: 53 yo male with PMH of MS, DM2, neuropathy, prior opiate use disorder not on MAT now here s/p accidental overdose from sniffing heroin at this time he has a coarse cough and on arrival he is 86% on RA despite being fully awake - at this time labs, CXR, EKG start on O2 and neb protocol could be aspiration, pulm edema, bronchospasm Differential Diagnosis Differential Diagnoses: The differential diagnosis associated with the presentation includes aspiration, neg pressure pulm edema, overdose, bronchospasm Admission/Observation Consideration of admission/observation: Escalation of care including admission/observation considered off O2 doing better Lab Data [facility] Lab Attestation statement: I reviewed the patient's lab results. 07/26/24 16:11 07/26/24 16:11 Labs: Lab Results 07/26/24 Range/Units 16:11 WBC 9.6 (4.8-10.8) X10*3/uL RBC 4.32 L (4.60-5.80) X10*6/uL Hgb 14.3 (14.0-18.0) g/dl Hct 39.8 L (42.0-52.0) % MCV 92.1 (80.0-98.0) fL MCH 33.1 H (27.0-33.0) pg MCHC 35.9 (31.0-36.0) g/dl RDW 11.9 (11.0-16.0) % Plt Count 189 (160-400) X10*3/uL MPV 10.6 (9.4-12.4) fL Immature Gran % (Auto) 0.3 (0.0-0.4) % Neut % (Auto) 75.5 H (45-73) % Lymph % (Auto) 15.0 L (20-40) % [place] % (Auto) 6.8 (2-11) % Eos % (Auto) 2.0 (0-4) % Baso % (Auto) 0.4 (0-2) % Lymph # (Auto) 1.4 (1.2-4.9) X10*3/uL [place] # (Auto) 0.7 (0.1-1.2) X10*3/uL Eos # (Auto) 0.2 (0.0-0.4) X10*3/uL Baso # (Auto) 0.0 (0.0-0.2) X10*3/uL Abs Immat Gran (auto) 0.03 (0.00-0.03) X10*3/uL Absolute Neuts (auto) 7.3 (2.0-8.3) x10*3/uL Absolute Nucleated RBC 0.000 (0.0-0.012) X10*3/uL Nucleated RBC % (auto) 0.0 (0.0-0.2) /100WBC Sodium 138 (135-145) mmol/L Potassium 4.0 (3.3-5.1) mmol/L Chloride 109 H (96-108) mmol/L Carbon Dioxide 25 (22-29) mmol/L Anion Gap 8 L (12-20) BUN 16 (9-16) mg/dL Creatinine 1.01 (0.5-1.4) mg/dL Estim Creat Clear Calc 79.0 Estimated GFR > 60 Random Glucose 195 H (60-115) mg/dL Calcium 8.8 (8.4-10.2) mg/dL Magnesium 2.0 (1.6-2.6) mg/dL Total Bilirubin 0.5 (0.0-1.0) mg/dL Direct Bilirubin 0.1 (0.0-0.5) mg/dL AST 20 (5-37) U/L ALT 17 (0-40) U/L C-Reactive Protein 0.19 (< or = 0.50) mg/dL B-Natriuretic Peptide < 10 (<100) pg/mL Total Protein 6.1 L (6.5-8.0) g/dL Albumin 3.9 (3.5-5.0) g/dL Independent Interpretation I performed an independent interpretation of an: EKG and Plain X-Ray (normal ) Interpretation: Rate: 73 Rhythm: NSR [place]: normal Normal P waves. Normal RANDY. Normal QRS complex. ST T wave : normal no JOE qTC: 425 prior studies: no acute ischemia The study has been interpreted contemporaneously by me. . Radiology Impression Discussion of test interpretation with radiology: I have reviewed the radiologist's reading. Independent Historian Clinical information obtained from an independent historian. History obtained from or confirmed by: EMS External Record Review External record reviewed: Outpatient record Discharge Plan Discharge Clinical Impression: Drug overdose Qualifiers: Encounter type: initial encounter Injury intent: accidental or unintentional Q ualified Code(s): T50.901A - Poisoning by unspecified drugs, medicaments and biological substances, accidental (unintentional), initial encounter Patient Disposition: Home, Self-Care Instructions: Adult Overdose (ED) Additional Instructions: Overdose You were seen in our Emergency Department for an overdose today. You received narcan in order to reverse the effects of overdose. Narcan only lasts about 45 min to 1 hour in the system. You may have been given narcan to take home with you today, please keep it near you if you are going to use again, so others can use it if needed.? The number one risk for fatal overdose is using alone? [employer] is a 24/ hotline where you can be on the phone with someone while you use, and they can call for help if they suspect an overdose: [phone] Things to look out for when you leave include severe vomiting or diarrhea, headaches, muscle cramps, fever, coughing, chest pain, or if you feel so short of breath you cannot walk to the bathroom. Please seek care and return any time for worsening symptoms.? You may have been provided with safer injection?items, please take time to take care of YOU and your health. Use new supplies whenever possible to lessen the chances of infections and other illnesses.? If you need more supplies, please go [facility],? [address], [place] you can call or text to coordinate delivery of safer supplies. If you decide you want to stop or cut down on how much you?re using, please call the numbers on the list provided to you or you can come to our outpatient Addiction Treatment office [facility] (M-F 9am-5p) [address], [address] [place], [place]. [phone] Prescriptions: No Action gabapentin 400 mg capsule 400 mg PO BID Qty: 60 3RF escitalopram oxalate 20 mg tablet 20 mg PO DAILY Qty: 30 0RF glipizide 5 mg tablet extended release 24hr 5 mg PO DAILY Qty: 30 0RF (DME) FreeStyle Lite Strips Strip See Rx Instructions .Route Qty: 50 3RF Rx Instructions: As directed three times per day (DME) wrist splints See Rx Instructions .Route .MEDSUPPLY Qty: 1 0RF Rx Instructions: As directed Trulicity 1.5 mg/0.5 mL pen injector 1.5 mg subcut QWEEK Qty: 2 0RF albuterol sulfate 90 mcg/actuation HFA aerosol inhaler inhalation Centrum Adults 12 mcg tablet,chewable PO insulin glargine [Lantus Solostar U-100 Insulin] 100 unit/mL (3 mL) insulin pen 10 unit subcut QPM PRN Print Language: Hungarian
--- NOTE | 2024-07-26 15:38 | ECG_ITS ---
Test Reason : OVERDOSE Blood Pressure : */* mmHG Vent. Rate : 73 BPM Atrial Rate : 73 BPM P-R Int : 174 ms QRS Dur : 96 ms QT Int : 386 ms P-R-T Axes : 77 70 25 degrees QTcB Int : 425 ms Normal sinus rhythm Normal ECG No previous ECGs available Referred By: Ilda Shah Electronically Signed By: HIRO KEITH MD
[2024-07-26] MEDS: Albuterol Sulfate 90 MCG 8 GM INHALER 4 PUFF INHALE (15:57)
[2024-07-26 16:19] LABS: MANUAL DIFF FLAG NO
[2024-07-26 16:20] LABS: Basophils Percent Auto 0.4 % (0-2); Eosinophils Absolute Auto 0.2 X10*3/uL (0.0-0.4); Hematocrit 39.8 % (42.0-52.0); Hemoglobin 14.3 g/dl (14.0-18.0); Imm Gran Abs Auto 0.03 X10*3/uL (0.00-0.03); Imm Gran Pct Auto 0.3 % (0.0-0.4); Lymphocytes Absolute Auto 1.4 X10*3/uL (1.2-4.9); Mean Corpuscular HGB Conc 35.9 g/dl (31.0-36.0); Mean Corpuscular Hemoglobin 33.1 pg (27.0-33.0); Mean Corpuscular Volume 92.1 fL (80.0-98.0); Mean Platelet Volume 10.6 fL (9.4-12.4); Monocytes Absolute Auto 0.7 X10*3/uL (0.1-1.2); Monocytes Percent Auto 6.8 % (2-11); Neutrophils Absolute Auto 7.3 x10*3/uL (2.0-8.3); Neutrophils Percent Auto 75.5 % (45-73); Platelet Count 189 X10*3/uL (160-400); Red Blood Count 4.32 X10*6/uL (4.60-5.80); Red Cell Distribution Width 11.9 % (11.0-16.0); White Blood Count 9.6 X10*3/uL (4.8-10.8)
[2024-07-26 16:40] LABS: B Type Natriuretic Peptide < 10 pg/mL (<100)
[2024-07-26 16:41] LABS: Alanine Aminotransferase 17 U/L (0-40); Albumin Level 3.9 g/dL (3.5-5.0); Anion Gap 8 (12-20); Aspartate Amino Transferase 20 U/L (5-37); Bilirubin Direct 0.1 mg/dL (0.0-0.5); Bilirubin Total 0.5 mg/dL (0.0-1.0); Blood Urea Nitrogen 16 mg/dL (9-16); C Reactive Protein 0.19 mg/dL (< or = 0.50); Calcium 8.8 mg/dL (8.4-10.2); Carbon Dioxide 25 mmol/L (22-29); Chloride 109 mmol/L (96-108); Estimated Glomerular Filt Rate > 60; Glucose Random 195 mg/dL (60-115); Sodium 138 mmol/L (135-145); Total Protein 6.1 g/dL (6.5-8.0)
--- NOTE | 2024-07-26 16:51 | MHC.EDTECH ---
EKG Was done at 1620 not at 2000 error nurse aware
--- NOTE | 2024-07-26 17:16 | PC.NURSE ---
pt currently more alert, maintaining spo2 >95% on RA. speaking in clear full sentences, answering questions appropriately. resp even, unlaboured, rate wnl. nsr on monitor.
[2024-07-26 18:27] LABS: Alkaline Phosphatase 76 U/L (39-117)
[2024-07-26] MEDS: Naloxone HCl Nasal TAKE HOME 4 MG SPRAY 8 MG NOSTRILALT (18:31)
== END 2024-07-26 18:31 | disposition home or self-care (01) ==
PROVIDERS: Emergency Provider Emergency Medicine; PCP Internal Medicine
DX: T65.91XA Toxic effect of unspecified substance, accidental (unintentional), initial encounter (principal); R09.02 Hypoxemia; Y92.9 Unspecified place or not applicable; G35 Multiple sclerosis; E11.9 Type 2 diabetes mellitus without complications; R05.9 Cough, unspecified
CPT/HCPCS: 36415; 71045; 80048; 80076; 83735; 83880; 85025; 86140; 93005; 94640; 94664; 99284

== ENCOUNTER → 2024-07-26 15:37 | Outpatient (BNV) | payer OTHER, SELFPAY | PROVIDERS: Emergency Provider Emergency Medicine; PCP Internal Medicine; Visit Provider Radiology Diagnostic Radiology | DX: R09.02 Hypoxemia (principal) | CPT/HCPCS: 71045 ==

== ENCOUNTER → 2024-07-26 15:38 | Outpatient (BNV) | payer OTHER, SELFPAY | PROVIDERS: Emergency Provider Emergency Medicine; PCP Internal Medicine; Visit Provider Internal Medicine Cardiovascular Disease | DX: T50.901A Poisoning by unspecified drugs, medicaments and biological substances, accidental (unintentional), initial encounter (principal) | CPT/HCPCS: 93010 ==

== ENCOUNTER 2024-08-06 14:09 | Emergency (ER) | payer OTHER, SELFPAY ==
[2024-08-06 14:24] VITALS: BP 125/87; PULSE 98; O2SAT 98
--- NOTE | 2024-08-06 14:35 | PC.NURSE ---
Pt was calm and on stretch on mckeon bed for a short period. EMS report taken by Stephan. This RN had brief conversation with patient He denied SI/HI, states he didn't feel nauseated after naracan, that he has received narcan in the past and was not interested in having recovery support. [facility] Per security, he refused to change and walked out the door. Strong steady gait observed as he walked down the sidewalk. Skin PWD.
[2024-08-06 14:48] VITALS: BP 218/73; PULSE 83; RESP 18; TEMP 36.9; O2SAT 97
== END 2024-08-06 14:55 | disposition left against medical advice (07) ==
LOC: HO.ED 14:43
PROVIDERS: Emergency Provider Emergency Medicine; PCP Internal Medicine
DX: T40.1X1A Poisoning by heroin, accidental (unintentional), initial encounter (principal); R40.4 Transient alteration of awareness; Y92.410 Unspecified street and highway as the place of occurrence of the external cause; Z53.21 Procedure and treatment not carried out due to patient leaving prior to being seen by health care provider

== ENCOUNTER 2024-09-02 14:35 | Outpatient (AMB) | payer OTHER, SELFPAY ==
--- NOTE | 2024-09-02 14:53 | A.OFFVIS_ITS ---
Vital Signs 09/02/24 14:55 Weight 177 lb BP 114/82 Blood Pressure Location Rt brachial Position Sitting Intake Visit Reasons: 6m follow up Multiple sclerosis Intake Note: Patient presents for w6 month follow up multiple scelrosis , EMG done 06/18/24 Allergies codeine Allergy (Intermediate, Verified 09/02/24 14:55) Hives HPI Comments Details: 53y/o male comes for follow up. EMG showed moderately severe median nerve neuropathy Left and mild median neuropathy on the right , mild left ulnar neuropathy His MRI brain and C spine was ordered but not done yet.he started using wrist splints - not consistently He is doing good . He is on trulicity which is helping his blood sugar . He was also consuming alcohol heavily until 2 years ago History form his visit 12/20-In 2019 he had MRSA and he had sudden rodney leg weakness. He was hospitalized in [facility] and was told he has MS ?.when he was discharged he needed a walker and has improved since then . He uses a cane as needed now. He reports on and off leg cramps , burning in calves , stiffness, hip pain causing gait issues. He also has back pain shooting down his legs . He describes it as burning pain. He has h/o diabetes and was found to have neuropathy .He is concerned about MS as his sister and Aunt has MS. He has urinary urgency and incontinence. He reports dizziness . No double vision or loss of vision He used to be an avid hiker before all this. [facility] Medical History (Updated 09/02/24 @ 15:20 by Anastasia Tello MD) Carpal tunnel syndrome Diabetic neuropathy Muscle spasms of both lower extremities Weakness Opiate abuse, episodic Cocaine abuse Heroin abuse Endocarditis Depression Type 2 diabetes mellitus L4-L5 disc bulge Surgical History Club foot of both lower extremities Family History Mother CHF (congestive heart failure) Type 2 diabetes mellitus Father Brain cancer Sister Multiple sclerosis Brother Endocarditis Brother Renal failure Maternal Grandmother Breast cancer Maternal Grandfather Lung cancer Social History Housing: Other Housing Other:: [employer] Alcohol intake: current Comment: 2x a week till pass out Patient Tobacco Use Status: Former Tobacco user Tobacco use type: Cigarette Years Smoked: marijuana Substance Use Type: Marijuana service: No Current occupational status: disabled Cognitive needs: Yes Hearing needs: No Vision needs: No Physical Exam Vital Signs: Last Vital Signs BP 114/82 09/02/24 14:55 Const General: cooperative, healthy appearing, comfortable and no acute distress Nutritional Appearance: average body habitus Orientation/consciousness: patient oriented x3 Eyes Pupils: Equal, round and reactive pupils present Neuro General: patient oriented x3, gait normal, tone normal, moves all extremities and no focal motor deficits Cranial nerves: Yes Facial sensation intact/muscles of mastication intact, Yes Equal, round and reactive pupils present, Yes Bilaterally intact EOM present, Yes Nystagmus not present, Yes Normal facial strength present, Yes Midline tongue present and Yes Symmetric palate elevation present Cognition (Neuro): normal cognition Gait exam (Neuro): Normal gait present Motor exam (neuro): 5/5 motor strength present throughout and Normal motor muscle tone present throughout Results Reviewed Results Reviewed: EMG-. Moderately severe left and [id number] right median neuropathy across carpal tunnel. 2. Mild left ulnar neuropathy across cubital tunnel. Assessment & Plan Assessment & Plan (1) Carpal tunnel syndrome: Code(s): G56.00 - Carpal tunnel syndrome, unspecified upper limb Category: Medical Qualifiers: Laterality: bilateral Qualified Code(s): G56.03 - Carpal tunnel syndrome, bilateral upper limbs (2) Weakness: Comment: ? h/o MS Code(s): R53.1 - Weakness Category: Medical (3) Muscle spasms of both lower extremities: Code(s): M62.838 - Other muscle spasm Category: Medical Plan He is doing better with good glucose controlled Use wrist splints - use it consistently MRI brain to ?MS Coding Level of Care Code Est Pt Level 4 (55376) Diagnoses Bilateral carpal tunnel syndrome G56.03 Laterality: bilateral Weakness R53.1 Muscle spasms of both lower extremities M62.838
[2024-09-02 14:55] VITALS: BP 114/82
== END 2024-09-02 15:25 | disposition home or self-care (01) ==
LOC: HO.HSMS 14:36
PROVIDERS: PCP Internal Medicine; Visit Provider Psychiatry & Neurology Neurology
DX: G56.03 Carpal tunnel syndrome, bilateral upper limbs (principal); R53.1 Weakness; M62.838 Other muscle spasm
CPT/HCPCS: 99214

== ENCOUNTER → 2024-09-02 14:35 | Outpatient (BNVA) | payer OTHER, SELFPAY | PROVIDERS: PCP Internal Medicine; Visit Provider Psychiatry & Neurology Neurology | DX: G56.03 Carpal tunnel syndrome, bilateral upper limbs (principal); G35 Multiple sclerosis; R53.1 Weakness; M62.838 Other muscle spasm; E11.40 Type 2 diabetes mellitus with diabetic neuropathy, unspecified; Z79.4 Long term (current) use of insulin | CPT/HCPCS: 99212 ==

== ENCOUNTER 2024-11-19 08:42 | Outpatient (AMB) | payer OTHER, SELFPAY ==
[2024-11-19 08:43] VITALS: BP 112/72; PULSE 87; O2SAT 96; BMI 28.5
--- NOTE | 2024-11-19 08:43 | MHC.PC.OV ---
Vital Signs 11/19/24 08:43 Height 5 ft 7 in Weight 182 lb BMI 28.5 BP 112/72 Blood Pressure Location Lt brachial Position Sitting Pulse 87 Pulse Source Pulse Oximeter Pulse Oximetry (%) 96 Oxygen Delivery Method Room Air Intake Visit Reasons: dm/ med discussion Allergies codeine Allergy (Intermediate, Verified 11/19/24 08:44) Hives Medication List - Last Reconciled 11/19/24 by Remigio Hernandez MD albuterol sulfate 90 mcg/actuation inhalation blood sugar diagnostic (FreeStyle Lite Strips) As directed three times per day dulaglutide (Trulicity) 1.5 mg (0.5 mL) subcut QWEEK escitalopram oxalate (Lexapro) 5 mg PO DAILY glipizide ER 5 mg PO DAILY lamotrigine 50 mg PO DAILY multivit with min-folic acid 12 mcg (Centrum Adults) tabs PO prazosin 1 mg PO BEDTIME [wrist splints As directed] Tobacco use date assessed: 11/19/24 Dental Screening Dental Screen Date: 11/19/24 Did you have a dental visit in the last 12 months?: No Did you have a dental problem in the last 6 months where you did not have access to dental care?: No Was dental information given to patient?: No HPI dm/ med discussion HPI Details complains of RL back and R knee pain. admits to taking narcotic but seeking [facility] mental health services [facility] Medical History (Updated 11/19/24 @ 09:09 by Remigio Hernandez MD) Low back pain radiating to lower extremity Carpal tunnel syndrome Diabetic neuropathy Muscle spasms of both lower extremities Weakness Opiate abuse, episodic Cocaine abuse Heroin abuse Endocarditis Depression Type 2 diabetes mellitus L4-L5 disc bulge Surgical History Club foot of both lower extremities Family History (Updated 11/19/24 @ 08:44 by Paris Choi CMA) Mother CHF (congestive heart failure) Type 2 diabetes mellitus Father Brain cancer Sister Multiple sclerosis Brother Endocarditis Brother Renal failure Maternal Grandmother Breast cancer Maternal Grandfather Lung cancer Social History Housing: Other Housing Other:: [facility] Alcohol intake: current Comment: 2x a week till pass out Patient Tobacco Use Status: Former Tobacco user Tobacco use type: Cigarette Years Smoked: marijuana e-Cigarette/Vaping Use: Never Used Second Hand Smoke Exposure: Yes Substance Use Type: Marijuana service: No Current occupational status: disabled Cognitive needs: Yes Hearing needs: No Vision needs: No Questionnaire PHQ-9 Over the last 2 weeks, how often have you been bothered by any of the following problems? 1. Little interest or pleasure in doing things: not at all 2. Feeling down, depressed, or hopeless: several days 3. Trouble falling or staying asleep, or sleeping too much: several days 4. Feeling tired or having little energy: not at all 5. Poor appetite or overeating: not at all 6. Feeling bad about yourself - or that you are a failure or have let yourself or your family down: not at all 7. Trouble concentrating on things, such as reading the newspaper or watching television: not at all 8. Moving or speaking so slowly that other people could have noticed. Or the opposite - being so fidgety or restless that you have been moving around a lot more than usual: not at all 9. Thoughts that you would be better off or of hurting yourself in some way: not at all Total score: 2 Depression Screening Interpretation: Positive Depression Screening Done: Yes Source: Developed by Drs. Magnus Rosado, Guerline Aquino, Sharath Burch and colleagues, with an educational lynn from [employer]. Thrive Questionnaire Date Thrive assessed: 11/19/24 I am a: Patient What is your living situation today?: I have a steady place to live Within the past 12 months, did the food you bought not last and you didn't have the money to get more?: Often true Within the past 12 months, did you worry whether your food would run out before you got money to buy more?: Sometimes True Do you have trouble paying for medicines?: No Do you have trouble getting transportation to medical appointments?: Yes Do you have trouble paying your heating and electricity bill?: No Do you have trouble taking care of your child, family member or friend?: No Do you have trouble with day-to-day activities such as bathing, preparing meals, shopping, managing finances, etc.?: No Are you currently unemployed and looking for a job?: No Are you interested in more education?: No Please select the resources that you would like help with: None Currently or been in a relationship where the following occur: No concerns reported THRIVE Score: 3 AUDIT C Alcohol Use Questionnaire (AUDIT-C) 1. How often do you have a drink containing alcohol?: Never 3. How often do you have six or more drinks on one occasion?: Never Total Score: 0 ORESTES-7 AMB Questionnaire ORESTES-7 Date ORESTES - 7 assessed: 11/19/24 Feeling nervous, anxious, or on edge: 0 = Not at all Not being able to stop or control worryin = Not at all Worrying too much about different things: 0 = Not at all Trouble relaxin = Not at all Being so restless that it is hard to sit still: 0 = Not at all Becoming easily annoyed or irritable: 0 = Not at all Feeling afraid as if something awful might happen: 0 = Not at all Total ORESTES-7 score (0-4 normal; 5-9 mild; 10-14 moderate; 15-21 severe): 0 Source: Developed by Drs. Magnus Rosado, Guerline Aquino, Sharath Burch and colleagues, with an educational lynn from [employer]. Physical exam (Primary Care) Vital Signs: Last Vital Signs Pulse 87 11/19/24 08:43 BP 112/72 11/19/24 08:43 Pulse Ox 96 11/19/24 08:43 Oxygen Delivery Method Room Air 11/19/24 08:43 BMI result Body Mass Index 28.5 Tobacco/Smoking Status: Tobacco use Status Tobacco use date assessed 11/19/24 11/19/24 08:50 Patient Tobacco Use Status Former Tobacco user 11/19/24 08:50 Tobacco use type Cigarette 11/19/24 08:50 e-Cigarette/Vaping Use Never Used 11/19/24 08:50 PHQ-9: PHQ-9 Score PHQ-9: Total score 2 11/19/24 09:06 Depression Screening Interpretation: Positive Thrive Assessment: Date of Thrive Assessment Date Thrive assessed 11/19/24 11/19/24 08:50 Currently or been in a relationship where the following occur: No concerns reported Const General: alert; No acute distress Eyes Conjunctivae: conjunctivae normal Resp Auscultation: clear to auscultation bilaterally Cardio Rate: regular rate Rhythm: regular rhythm GI Inspection: Yes normal to inspection Extrem General: Yes normal to inspection and No edema Results AMB Hemoglobin A1c AMB Hemoglobin A1c 6.9 % Last Edit by Paris Choi CMA on 11/19/24 08:56 Results Reviewed Results Reviewed: Laboratory Last Values Hgb A1c (Clinic) 6.9 % (4.0-6.0) H 11/19/24 08:55 Coding Level of Care Code Est Pt Level 4 (13380) Complex EM visit Add On G2211 Diagnoses Type 2 diabetes mellitus with hyperglycemia E11.65 Bilateral carpal tunnel syndrome G56.03 Laterality: bilateral Major depression F32.9 Opiate abuse, episodic F11.10 Low back pain radiating to lower extremity M54.50; M79.606 Pain of back and right lower extremity M54.9; M79.604 Assessment & Plan Assessment & Plan (1) Type 2 diabetes mellitus with hyperglycemia: Code(s): E11.65 - Type 2 diabetes mellitus with hyperglycemia Category: Medical Plan: Decrease the amount of carbohydrate intake, pasta, bread, rice and potatoes are all sugar and that is aside from all the sweet stuff, remember that fruits are good but they are Sweet also. Hemoglobin A1c goal of less than 6.5. Patient on Trulicity 1.5 mg once a week glipizide 5 mg once a day (2) Carpal tunnel syndrome: Code(s): G56.00 - Carpal tunnel syndrome, unspecified upper limb Category: Medical Qualifiers: Laterality: bilateral Qualified Code(s): G56.03 - Carpal tunnel syndrome, bilateral upper limbs Plan: Discussed about treatment for carpal tunnel syndrome (3) Major depression: Code(s): F32.9 - Major depressive disorder, single episode, unspecified Category: Medical Plan: Discussed about counseling and therapy. Presently on prazosin (4) Opiate abuse, episodic: Comment: June 2024 Code(s): F11.10 - Opioid abuse, uncomplicated Category: Medical Plan: Patient is strongly advised to seek consult (5) Low back pain radiating to lower extremity: Code(s): M54.50 - Low back pain, unspecified; M79.606 - Pain in leg, unspecified Category: Medical (6) Pain of back and right lower extremity: Code(s): M54.9 - Dorsalgia, unspecified; M79.604 - Pain in right leg Category: Medical Plan History of Present Illness The patient is a 54-year-old male presenting for follow-up care. The patient has a history of multiple sclerosis, diabetes mellitus, and depression. He was seen by neurology in August for severe median nerve neuropathy on the left and mild neuropathy on the right. In June, the patient was admitted to the emergency room for a heroin overdose. The patient reports ongoing issues with back pain, which he associates with degenerative disc disease, specifically mentioning L4 and L5 compression. He experiences pain radiating from the back to the knee, affecting his ability to support himself on the knee. He has been using a brace for support during work and has been attending meetings for substance use support. The patient has been managing his diabetes with Trulicity and glipizide, with a recent hemoglobin A1c of 6.9, improved from 8.5 in November 2023. He is not currently on insulin and reports his blood sugar was 165 mg/dL this morning after consuming ice cream the previous night. The patient has been experiencing symptoms of carpal tunnel syndrome, with moderate to severe symptoms on the left and mild to moderate on the right. He reports numbness in his fingertips, which affects his ability to use his phone. Preventative care measures discussed include a referral for a colonoscopy and the need for a pneumonia vaccine due to his diabetes. 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 - Substance use: History of heroin overdose, attending support meetings - Mental health support: Engaged with [facility] and [facility] for psychiatric support Review of Systems - Musculoskeletal: Reports back pain radiating to the knee, difficulty supporting on knee - Neurological: Reports numbness in fingertips, moderate to severe carpal tunnel syndrome symptoms - Endocrine: Reports blood sugar of 165 mg/dL after consuming ice cream Physical Exam Results - Labs: Hemoglobin A1c improved to 6.9 from 8.5 - Labs: Normal blood count, electrolytes, renal function, and liver function - Labs: LDL cholesterol was 91 in March 2023 Plan Patient was informed and verbally consented to the use of an ambient scribe for clinic note documentation during this visit. 1. Multiple Sclerosis The patient will continue to follow up with neurology for management of multiple sclerosis. 2. Diabetes Mellitus The patient's diabetes management includes Trulicity and glipizide, with a target hemoglobin A1c of less than 6.5. He is advised to monitor blood glucose levels and maintain dietary control. 3. Depression The patient is advised to continue psychiatric support through the Department of Mental Health and [facility]. 4. Pancreatic Mass Further evaluation and management of the pancreatic mass will be coordinated with oncology as needed. 5. Median Nerve Neuropathy The patient is advised to consider treatment options for carpal tunnel syndrome, including potential referral to orthopedics. 6. Heroin Overdose The patient is encouraged to continue attending substance use support meetings and engage with mental health services. 7. Degenerative Disc Disease The patient is advised to pursue physical therapy and consider imaging studies to assess the extent of degenerative changes. 8. Carpal Tunnel Syndrome The patient is referred to orthopedics for evaluation and management of carpal tunnel syndrome. Discussion Notes I discussed with the patient the importance of managing his diabetes with a target hemoglobin A1c of less than 6.5 and the need for regular blood glucose monitoring. We also talked about the referral for a colonoscopy and the importance of vaccinations, including the pneumonia vaccine due to his diabetes. The patient was advised to continue attending substance use support meetings and to follow up with orthopedics for his carpal tunnel syndrome. Patient Instructions - Monitor blood glucose levels regularly and aim for a hemoglobin A1c of less than 6.5. - Schedule and attend the colonoscopy referral. - Get the pneumonia vaccine as recommended. - Continue attending substance use support meetings. - Follow up with orthopedics for carpal tunnel syndrome evaluation. Orders: Orders AMB Hemoglobin A1c Today Z13.9 - Encounter for screening, unspecified XR lumbar spine 2-3V Today M54.9 - Dorsalgia, unspecified, M79.604 - Pain in right leg XR knee RT 2V Today M54.9 - Dorsalgia, unspecified, M79.604 - Pain in right leg PT Evaluation and Treatment Today M54.9 - Dorsalgia, unspecified, M79.604 - Pain in right leg Complete Blood Count Auto Diff Today E11.65 - Type 2 diabetes mellitus with hyperglycemia Comprehensive Met. Panel Today E11.65 - Type 2 diabetes mellitus with hyperglycemia Lipid Panel Today E11.65 - Type 2 diabetes mellitus with hyperglycemia, E78.00 - Pure hypercholesterolemia, unspecified Prostate Specific Antigen Scr Today E11.65 - Type 2 diabetes mellitus with hyperglycemia Microalbumin, Random (w Creat) Today E11.65 - Type 2 diabetes mellitus with hyperglycemia Free T4 (Free Thyroxine) Today E11.65 - Type 2 diabetes mellitus with hyperglycemia Thyroid Stimulating Hormone Today E11.65 - Type 2 diabetes mellitus with hyperglycemia Creatinine Urine Today E11.65 - Type 2 diabetes mellitus with hyperglycemia Vitamin B12 and Folate Today E11.65 - Type 2 diabetes mellitus with hyperglycemia Referrals Gastroenterology Referral Z12.11 - Encounter for screening for malignant neoplasm of colon Orthopedics Referral G56.03 - Carpal tunnel syndrome, bilateral upper limbs Medications: Refilled blood sugar diagnostic (FreeStyle Lite Strips) As directed three times per day 100 ea 3RF E11.65 - Type 2 diabetes mellitus with hyperglycemia
== END 2024-11-19 09:21 | disposition home or self-care (01) ==
LOC: HO.HMCH 08:42
PROVIDERS: PCP Internal Medicine; Visit Provider Internal Medicine
DX: E11.65 Type 2 diabetes mellitus with hyperglycemia (principal); G56.03 Carpal tunnel syndrome, bilateral upper limbs; F32.9 Major depressive disorder, single episode, unspecified; F11.10 Opioid abuse, uncomplicated; M54.50 Low back pain, unspecified; M79.606 Pain in leg, unspecified; M54.9 Dorsalgia, unspecified; M79.604 Pain in right leg; Z13.9 Encounter for screening, unspecified

== ENCOUNTER → 2024-11-19 08:42 | Outpatient (BNVA) | payer OTHER, SELFPAY | PROVIDERS: PCP Internal Medicine; Visit Provider Internal Medicine | DX: E11.65 Type 2 diabetes mellitus with hyperglycemia (principal); E11.40 Type 2 diabetes mellitus with diabetic neuropathy, unspecified; G56.03 Carpal tunnel syndrome, bilateral upper limbs; F32.9 Major depressive disorder, single episode, unspecified; F11.10 Opioid abuse, uncomplicated; M54.50 Low back pain, unspecified; M79.604 Pain in right leg; G35 Multiple sclerosis; E78.00 Pure hypercholesterolemia, unspecified; Z79.899 Other long term (current) drug therapy | CPT/HCPCS: 83036; 96127; 99212 ==

== ENCOUNTER 2024-11-29 09:46 | Outpatient (REF) | payer OTHER, SELFPAY ==
--- NOTE | ~2024-11-29 | XR_ITS ---
EXAMINATION: XR LUMBOSACRAL SPINE CLINICAL INFORMATION: M54.9 - Dorsalgia, unspecified COMPARISON: None available. TECHNIQUE: AP and lateral views FINDINGS: Endplate sclerosis, decreased intervertebral disc height and small marginal osteophyte formation at L4-5 and L5-S1 levels. Grade 1 anterolisthesis L5-S1. Grade 1 retrolisthesis L4-5 and L3-4 levels. No acute cortical disruption. No lytic or blastic lesions. 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 S-shaped curvature of the lumbar spine. No lytic or blastic lesions. XR/XR lumbar spine 2-3V IMPRESSION: Spondylosis, L3-4 to L5-S1 pronounced at L4-5. Spondylolysis pars interarticulares resulting in grade 1 anterolisthesis, L5-S1. Grade 1 retrolisthesis L3-4 and L4-5. Electronically signed by: Horacio Vyas MD 11/29/2024 10:40 AM EDT
--- NOTE | ~2024-11-29 | XR_ITS ---
EXAMINATION: XR KNEE, RIGHT CLINICAL INFORMATION: M54.9 - Dorsalgia, unspecified COMPARISON: None available. TECHNIQUE: AP and lateral views of the right knee. FINDINGS: Old traumatic deformity in the proximal fibula. No acute cortical disruption or malalignment. Joint space narrowing involving mostly the medial compartment with sclerosis along the articular surface of the medial tibial plateau and medial femoral condyle. Small marginal osteophyte formation in the medial femoral condyle and medial tibial plateau. Small to moderate volume suprapatellar bursa joint effusion. No lytic or blastic lesions. No gross soft tissue calcifications. XR/XR knee RT 2V IMPRESSION: Moderate medial compartment osteoarthrosis/osteoarthritis. Small to moderate volume suprapatellar bursa joint effusion. Old traumatic deformity, proximal fibula. Electronically signed by: Horacio Vyas MD 11/29/2024 10:38 AM EDT
[2024-11-29 10:02] LABS: MANUAL DIFF FLAG NO
[2024-11-29 10:37] LABS: Hematocrit 44.0 % (42.0-52.0); Hemoglobin 15.6 g/dl (14.0-18.0); Imm Gran Abs Auto 0.03 X10*3/uL (0.00-0.03); Imm Gran Pct Auto 0.4 % (0.0-0.4); Lymphocytes Absolute Auto 1.9 X10*3/uL (1.2-4.9); Mean Corpuscular HGB Conc 35.5 g/dl (31.0-36.0); Mean Corpuscular Hemoglobin 33.5 pg (27.0-33.0); Mean Corpuscular Volume 94.6 fL (80.0-98.0); NRBC Abs Auto 0.000 X10*3/uL (0.0-0.012); NRBC Pct Auto 0.0 /100WBC (0.0-0.2); Platelet Count 245 X10*3/uL (160-400); Red Blood Count 4.65 X10*6/uL (4.60-5.80); White Blood Count 7.4 X10*3/uL (4.8-10.8)
[2024-11-29 11:33] LABS: Alanine Aminotransferase 28 U/L (0-40); Albumin Level 4.2 g/dL (3.5-5.0); Alkaline Phosphatase 95 U/L (39-117); Anion Gap 11 (12-20); Aspartate Amino Transferase 34 U/L (5-37); Blood Urea Nitrogen 16 mg/dL (9-16); Calcium 9.3 mg/dL (8.4-10.2); Carbon Dioxide 25 mmol/L (22-29); Chloride 108 mmol/L (96-108); Cholesterol 159 mg/dL (<200); Estimated Glomerular Filt Rate > 60; HDL Cholesterol 33 mg/dL (>40); Potassium 4.6 mmol/L (3.3-5.1); Sodium 139 mmol/L (135-145); Total Protein 6.7 g/dL (6.5-8.0); Triglycerides 216 mg/dL (<150)
[2024-11-29 11:39] LABS: Folate 11.2 ng/mL (> or = 4.0); Vitamin B12 444 pg/mL (200-900)
[2024-11-29 11:52] LABS: Free T4 (Free Thyroxine) 0.90 ng/dL (0.71-1.85); Thyroid Stimulating Hormone 1.88 uIU/mL (0.32-4.0)
== END 2024-11-29 09:47 | disposition home or self-care (01) ==
LOC: HO.XRAY 09:46
PROVIDERS: PCP Internal Medicine; Visit Provider Internal Medicine
DX: Z12.5 Encounter for screening for malignant neoplasm of prostate (principal); E11.65 Type 2 diabetes mellitus with hyperglycemia; M54.50 Low back pain, unspecified; E78.00 Pure hypercholesterolemia, unspecified; M79.604 Pain in right leg
CPT/HCPCS: 36415; 72100; 73560; 80053; 80061; 82043; 82570; 82607; 82746; 84153; 84439; 84443; 85025

== ENCOUNTER → 2024-11-29 10:04 | Outpatient (BNV) | payer OTHER, SELFPAY | PROVIDERS: PCP Internal Medicine; Visit Provider Radiology Diagnostic Radiology | DX: M47.817 Spondylosis without myelopathy or radiculopathy, lumbosacral region (principal); M17.11 Unilateral primary osteoarthritis, right knee; M25.461 Effusion, right knee | CPT/HCPCS: 72100; 73560 ==

== ENCOUNTER 2025-01-22 09:41 | Outpatient (AMB) | payer OTHER, SELFPAY ==
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
[2025-01-22 10:35] VITALS: BMI 28.5
== END 2025-01-22 11:03 | disposition home or self-care (01) ==
LOC: HO.HOS 09:42
PROVIDERS: PCP Internal Medicine; Visit Provider Orthopaedic Surgery
DX: G56.03 Carpal tunnel syndrome, bilateral upper limbs (principal); G56.22 Lesion of ulnar nerve, left upper limb; E11.65 Type 2 diabetes mellitus with hyperglycemia; F11.10 Opioid abuse, uncomplicated
CPT/HCPCS: 99204

== ENCOUNTER → 2025-01-22 09:41 | Outpatient (BNVA) | payer OTHER, SELFPAY | PROVIDERS: PCP Internal Medicine; Visit Provider Orthopaedic Surgery | DX: G56.03 Carpal tunnel syndrome, bilateral upper limbs (principal); E11.65 Type 2 diabetes mellitus with hyperglycemia; G56.22 Lesion of ulnar nerve, left upper limb; F11.10 Opioid abuse, uncomplicated | CPT/HCPCS: 99202 ==